=== PATIENT | female | born 1940 | race Caucasian/White ===

== ENCOUNTER 2020-12-12 14:00 | Emergency (ER) | payer MEDICARE, SELFPAY ==
[2020-12-12] VITALS (10 sets, daily range): BP systolic 171–216; BP diastolic 74–88; PULSE 64–73; RESP 16–27; TEMP 36.6; O2SAT 91–95
--- NOTE | 2020-12-12 14:10 | DI.RAD.S_ITS ---
PROCEDURE: XR CHEST 1V INDICATIONS: chest pain TECHNIQUE: One view of the chest was acquired. COMPARISON: None. FINDINGS: Surgical changes and devices: None. Lungs and pleura: Lungs are clear. No pleural effusions or pneumothorax. Mediastinum: Mediastinal contours appear normal. Heart size is normal. Bones and chest wall: No suspicious bony lesions. Overlying soft tissues appear unremarkable. IMPRESSION: No acute cardiopulmonary disease. Dictated by: Dionte Berrios M.D. on 12/12/2020 at 14:45 Approved by: Dionte Berrios M.D. on 12/12/2020 at 14:46
--- NOTE | 2020-12-12 14:44 | PC.NURSE ---
Pt has hx of of COPD and has chronic SOB that she cotributes to wearing a mask. Pt denies increased SOB and orthopnea. Pt is here with c/o hand and feet swelling. Pt saw PCP before she left [place] and changed medications from HCTZ to Lasix and she says it's not helping.
[2020-12-12 14:46] LABS: Add Manual Diff / Slide Review NO; Basophils Absolute Auto 100 /uL (0-100); Basophils Percent Auto 1.2 % (0-2); Eosinophils Absolute Auto 200 /uL (0-450); Eosinophils Percent Auto 2.8 % (2-4); Hematocrit 38.6 % (36-46); Hemoglobin 12.6 g/dL (12.0-16.0); Lymphocytes Absolute Auto 800 /uL (1100-4500); Lymphocytes Percent Auto 14.8 % (25-40); Mean Corpuscular HGB Conc 32.5 % (30-36); Mean Corpuscular Hemoglobin 28.1 PG (26-34); Mean Corpuscular Volume 86.5 fL (80-100); Monocytes Absolute Auto 500 /uL (0-900); Monocytes Percent Auto 8.6 % (3-14); Neutrophils Absolute Auto 4000 /uL (1500-7000); Neutrophils Percent Auto 72.6 % (50-75); Platelet Count 195 X10^3/uL (150-400); Red Blood Cell Count 4.47 X10^6/uL (4.0-5.2); White Blood Cell Count 5.5 X10^3/uL (4.5-11.0)
[2020-12-12 14:56] LABS: Alanine Aminotransferase 15 IU/L (<35); Albumin Globulin Ratio 1.7 (1.0-2.8); Alkaline Phosphatase 68 U/L (38-126); Aspartate Aminotransferase 22 IU/L (14-36); Bilirubin Total 0.5 mg/dL (0.2-1.3); Blood Urea Nitrogen 18 mg/dL (7-17); Calcium 9.5 mg/dL (8.4-10.2); Carbon Dioxide 30 mmol/L (22-32); Chloride 105 mmol/L (98-107); Creatine Kinase 63 U/L (30-135); Estimated Glomerular Filt Rate 53.3 mL/min (>60); Globulin 2.4 g/dL (1.7-4.1); Glucose 132 mg/dL (80-110); HEMOLYSIS < 15 (0-50); Lipase 58 U/L (23-300); Potassium 3.8 mmol/L (3.4-5.1); Sodium 143 mmol/L (137-145); Total Protein 6.4 g/dL (6.3-8.2)
--- NOTE | 2020-12-12 15:01 | ED_ITS ---
HPI - SOB/Dyspnea General Chief Complaint: Shortness of Breath/Dyspnea Stated Complaint: CP, SOB Time Seen by Provider: 12/12/20 14:46 Source: patient Mode of arrival: Ambulatory Limitations: no limitations History of Present Illness HPI Narrative: Patient is a 80-year-old history of CHF and COPD presenting with bilateral feet swelling. She actually lives in [place] and is visiting her grandson. She was seen by her primary care provider before she left because of but swelling and she was placed on 20 mg of Lasix. He has been taking it but still her feet feel like they are swollen. She has no lower extremity swelling she denies any worsening shortness of breath. She denies any orthopnea. She does wear oxygen at night however she is visiting they were supposed to deliver a tank of oxygen for her but they have only delivered small tanks which last for only 2 hours not couple night. she is having some shortness of breath during the day with exertion she thinks that is because she is not getting oxygen night. she denies any chest pain no fever chills or cough. She is truly here for her lower extremity foot swelling. She has difficult time putting shoes on. Onset (ago): week(s) Review of Systems Review of Systems ROS Unobtainable: All systems reviewed & are unremarkable except as noted in HPI and below Constitutional Constitutional: Denies chills, Denies fever(s), Denies lethargy and Denies weakness ENT Ears, Nose, Mouth, and Throat: Denies change in voice, Denies vertigo, Denies dizziness, Denies neck pain and Denies sore throat Cardiovascular Cardiovascular: Denies chest pain, Denies syncope, Denies irregular heart rhythm, Reports leg edema (Foot swelling), Denies lightheadedness, Denies palpitations, Denies dyspnea, Denies dyspnea on exertion and Denies orthopnea Respiratory Respiratory: Denies cough, Denies dyspnea, Denies dyspnea on exertion and Denies wheezing Gastrointestinal Gastrointestinal: Denies abdominal pain, Denies change in bowel habits, Denies diarrhea, Denies nausea and Denies vomiting Musculoskeletal Musculoskeletal: Denies back pain and Denies neck pain Integumentary/Breasts Skin/Breast: Denies pruritus, Denies erythema, Denies rash and Denies wounds Neurologic Neurologic: Denies vertigo, Denies dizziness, Denies syncope and Denies weakness Endocrine Endocrine: Denies palpitations Allergic/Immunologic Allergic/Immunologic: Denies wheezing Patient History Medical History CHF (congestive heart failure) COPD (chronic obstructive pulmonary disease) Coronary artery disease Social History Smoking Status: Former smoker Smoking Status: Former smoker Substance Use Type: does not use Exam Initial Vital Signs Initial Vital Signs: Vital Signs Temperature 97.9 F 12/12/20 14:10 Pulse Rate 70 12/12/20 14:10 Respiratory Rate 16 12/12/20 14:10 Blood Pressure 171/74 H 12/12/20 14:10 Pulse Oximetry 91 12/12/20 14:10 GENERAL: Well-appearing, well-nourished and in no acute distress. HEENT: Head atraumatic,EOMI, pupils reactive, face symmetric, moist mucous membranes CARDIOVASCULAR: Regular rate and rhythm without murmurs, rubs or gallops. RESPIRATORY: Breath sounds equal bilaterally, no wheezes rales or rhonchi. ABDOMEN: Soft, nontender. Normoactive bowel sounds all 4 quadrants. No gu arding or rebound. : No CVA tenderness EXTREMITIES: Normal range of motion, no clubbing. Mild foot swelling no significant foot or shoe indentation no tibial swelling Neurovascularly intact NEUROLOGICAL: Alert and oriented x4.Normal gait and speech. Cranial nerves II through XII grossly intact. SKIN: Warm, dry, no laceration, no petechiae, no rashes or lesions. Course Orders Ordered: ED Orders 12/12/20 14:10 XR chest 1V Stat EKG-12 Lead Stat 12/12/20 14:35 Complete Blood Count AUTO DIFF Stat Comprehensive Metabolic Panel Stat D Dimer Stat Lipase Stat NT-proBNP (BNP-Adult 18+) Stat Partial Thromboplastin Time Stat Prothrombin Time INR Stat Troponin & CK Cardiac Panel Stat 12/12/20 16:50 CT angio chest PE protocol Stat Vital Signs Vital signs: Vital Signs - 8 hr 12/12/20 14:10 12/12/20 14:25 12/12/20 14:30 Temperature 97.9 F Pulse Rate 70 66 Respiratory Rate 16 27 H Blood Pressure 171/74 H Pulse Oximetry 91 93 92 12/12/20 14:31 12/12/20 15:03 12/12/20 15:04 Temperature Pulse Rate 69 73 69 Respiratory Rate 25 H 24 23 Blood Pressure 187/77 H Pulse Oximetry 93 93 93 12/12/20 15:30 12/12/20 16:00 12/12/20 16:21 Temperature Pulse Rate 64 66 67 Respiratory Rate 20 22 20 Blood Pressure 192/77 H Pulse Oximetry 94 92 93 12/12/20 18:10 Temperature Pulse Rate 66 Respiratory Rate 16 Blood Pressure 216/88 H Pulse Oximetry 95 MDM - SOB/Dyspnea Lab Data Attestation: I reviewed the patient's lab results. Result diagrams: 12/12/20 14:35 12/12/20 14:35 Labs: Lab Results 12/12/20 12/12/20 12/12/20 Range/Units 14:35 14:35 14:35 WBC 5.5 (4.5-11.0) X10^3/uL RBC 4.47 (4.0-5.2) X10^6/uL Hgb 12.6 (12.0-16.0) g/dL Hct 38.6 (36-46) % MCV 86.5 (80-100) fL MCH 28.1 (26-34) PG MCHC 32.5 (30-36) % RDW 15.0 H (11.6-14.8) % Plt Count 195 (150-400) X10^3/uL Neut % (Auto) 72.6 (50-75) % Lymph % (Auto) 14.8 L (25-40) % Miller % (Auto) 8.6 (3-14) % Eos % (Auto) 2.8 (2-4) % Baso % (Auto) 1.2 (0-2) % Neut # (Auto) 4000 (1598-9696) /uL Lymph # (Auto) 800 L (5082-3198) /uL Miller # (Auto) 500 (0-900) /uL Eos # (Auto) 200 (0-450) /uL Baso # (Auto) 100 (0-100) /uL PT 11.2 (10.1-12.7) SECONDS INR 1.0 (0.9-1.3) APTT 27 (26.4-36.2) SECONDS D-Dimer (<230) ng/mL Sodium 143 (137-145) mmol/L Potassium 3.8 (3.4-5.1) mmol/L Chloride 105 (98-107) mmol/L Carbon Dioxide 30 (22-32) mmol/L BUN 18 H (7-17) mg/dL Creatinine 1.00 (0.52-1.04) mg/dL Estimated GFR 53.3 L (>60) mL/min BUN/Creatinine Ratio 18.0 (6-22) Glucose 132 H (80-110) mg/dL Calcium 9.5 (8.4-10.2) mg/dL Total Bilirubin 0.5 (0.2-1.3) mg/dL AST 22 (14-36) IU/L ALT 15 (<35) IU/L Alkaline Phosphatase 68 (38-126) U/L Total Creatine Kinase 63 (30-135) U/L CK-MB (CK-2) TNP CK-MB (CK-2) Rel Index TNP Troponin I < 0.012 (0.01-0.034) ng/mL NT-Pro-B Natriuret Pep (<450) pg/mL Total Protein 6.4 (6.3-8.2) g/dL Albumin 4.0 (3.5-5.0) g/dL Globulin 2.4 (1.7-4.1) g/dL Albumin/Globulin Ratio 1.7 (1.0-2.8) Lipase 58 (23-300) U/L 12/12/20 12/12/20 Range/Units 14:35 14:35 WBC (4.5-11.0) X10^3/uL RBC (4.0-5.2) X10^6/uL Hgb (12.0-16.0) g/dL Hct (36-46) % MCV (80-100) fL MCH (26-34) PG MCHC (30-36) % RDW (11.6-14.8) % Plt Count (150-400) X10^3/uL Neut % (Auto) (50-75) % Lymph % (Auto) (25-40) % Miller % (Auto) (3-14) % Eos % (Auto) (2-4) % Baso % (Auto) (0-2) % Neut # (Auto) (3698-6120) /uL Lymph # (Auto) (0599-5437) /uL Miller # (Auto) (0-900) /uL Eos # (Auto) (0-450) /uL Baso # (Auto) (0-100) /uL PT (10.1-12.7) SECONDS INR (0.9-1.3) APTT (26.4-36.2) SECONDS D-Dimer 346 H (<230) ng/mL Sodium (137-145) mmol/L Potassium (3.4-5.1) mmol/L Chloride (98-107) mmol/L Carbon Dioxide (22-32) mmol/L BUN (7-17) mg/dL Creatinine (0.52-1.04) mg/dL Estimated GFR (>60) mL/min BUN/Creatinine Ratio (6-22) Glucose (80-110) mg/dL Calcium (8.4-10.2) mg/dL Total Bilirubin (0.2-1.3) mg/dL AST (14-36) IU/L ALT (<35) IU/L Alkaline Phosphatase (38-126) U/L Total Creatine Kinase (30-135) U/L CK-MB (CK-2) CK-MB (CK-2) Rel Index Troponin I (0.01-0.034) ng/mL NT-Pro-B Natriuret Pep 417 (<450) pg/mL Total Protein (6.3-8.2) g/dL Albumin (3.5-5.0) g/dL Globulin (1.7-4.1) g/dL Albumin/Globulin Ratio (1.0-2.8) Lipase (23-300) U/L Imaging Data Chest x-ray: Radiologist's Impression: PROCEDURE: XR CHEST 1V INDICATIONS: chest pain TECHNIQUE: One view of the chest was acquired. COMPARISON: None. FINDINGS: Surgical changes and devices: None. Lungs and pleura: Lungs are clear. No pleural effusions or pneumothorax. Mediastinum: Mediastinal contours appear normal. Heart size is normal. Bones and chest wall: No suspicious bony lesions. Overlying soft tissues appe ar unremarkable. IMPRESSION: No acute cardiopulmonary disease. Dictated by: Dionte Berrios M.D. on 12/12/2020 at 14:45 CT scan - chest: Radiologist's Impression: PROCEDURE: CT ANGIO CHEST PE PROTOCOL INDICATIONS: hypoxia TECHNIQUE: After the administration of intravenous contrast, 2 mm thick sections acquired from the pulmonary apices to the posterior costophrenic angles. 3-dimensional maximum intensity projection (MIP) coronal and sagittal reformats were then acquired through the thorax. For radiation dose reduction, the following was used: automated exposure control, adjustment of mA and/or kV according to patient size. COMPARISON: [facility], CR, XR CHEST 1V, 12/12/2020, 14:18. FINDINGS: Image quality: Excellent. Lungs and pleura: No acute air space opacities. No pleural effusions or pneumothorax. Central and peripheral airways are patent and normal in caliber. Mediastinum: Heart size is normal. No pericardial effusion. No mediastinal adenopathy by size criteria. Thoracic aorta and central pulmonary arteries are normal in size. There is a sliding hiatal hernia. Bones and chest wall: No suspicious bony lesions. No vertebral body compression fractures. No axillary or supraclavicular adenopathy by size criteria. Thyroid gland is normal . Abdomen: Limited visualization of the upper abdomen shows no acute abnormality. IMPRESSION: 1. No pulmonary embolism. 2. No acute abnormality of the chest. 3. Sliding hiatal hernia. Dictated by: Hieu Cosme M.D. on 12/12/2020 at 17:42 Approved by: Hieu Cosme M.D. on 12/12/2020 at 17:47 ECG Data Attestation: I personally reviewed and interpreted this ECG as follows: Prior ECG tracings: not available for review Interpretation: Sinus rhythm rate 66 p.r. interval 156 QRS [address] changes Q-wave noted in lead 3 only no priors to compare. [facility] Narrative Medical decision making narrative: Patient initially quite resistant to in IV. She has a history of COPD and CHF. She is not getting the oxygen that she needs at night due to travel and communication issues with the oxygen company. [facility] that seems to be working out. Unfortunately she just had a long airplane flight and is having some shortness of breath with exertion during the daytime. Her biggest complaint however is her foot swelling. She is able to wear her shoes without significant indent that I appreciated. She certainly has no tibial edema. Lungs are clear with negative BNP. She is taking Lasix she states that she takes 20 mg once a day and is urinating. At this time I states that she could increase her Lasix to twice a day for no more than 2 days in a row however I will also recommend compression socks and elevation. CT angio was done due to her recent airplane flight and some shortness of. Which was negative for PE. Discharge Plan Departure Patient Disposition: Home Clinical Impression: Bilateral edema of lower extremity Instructions: DI for Peripheral Edema -- Bilateral Activity Restrictions/Additional Instructions: *You have been diagnosed with lower extremity edema *What to do: At this time he do not have a blood clot in her lungs. You have a small amount of fluid retention. Recommend leg elevation and compression stockings *Continue to take medications as directed You may increase your Lasix to twice a day for no more than 2 days in a row, do not take Lasix and hydrochlorothiazide together *Follow up with your primary care provider in 2-3 days *Return to ER if you should have increasing shortness of breath, increasing leg swelling, fever or any new, worsening or concerning symptoms Referrals: Miscellaneous,[facility] [Primary Care Provider] -
[2020-12-12 15:05] LABS: Prothrombin Time 11.2 SECONDS (10.1-12.7)
[2020-12-12 15:07] LABS: PTT Partial Thromboplastin Tim 27 SECONDS (26.4-36.2); Troponin I < 0.012 ng/mL (0.01-0.034)
[2020-12-12 15:19] LABS: D Dimer 346 ng/mL (<230)
[2020-12-12 15:42] LABS: NT-proBNP (BNP-Adult 18+) 417 pg/mL (<450)
--- NOTE | 2020-12-12 16:50 | DI.CT.S_ITS ---
PROCEDURE: CT ANGIO CHEST PE PROTOCOL INDICATIONS: hypoxia TECHNIQUE: After the administration of intravenous contrast, 2 mm thick sections acquired from the pulmonary apices to the posterior costophrenic angles. 3-dimensional maximum intensity projection (MIP) coronal and sagittal reformats were then acquired through the thorax. For radiation dose reduction, the following was used: automated exposure control, adjustment of mA and/or kV according to patient size. COMPARISON: [facility], CR, XR CHEST 1V, 12/12/2020, 14:18. FINDINGS: Image quality: Excellent. Lungs and pleura: No acute air space opacities. No pleural effusions or pneumothorax. Central and peripheral airways are patent and normal in caliber. Mediastinum: Heart size is normal. No pericardial effusion. No mediastinal adenopathy by size criteria. Thoracic aorta and central pulmonary arteries are normal in size. There is a sliding hiatal hernia. Bones and chest wall: No suspicious bony lesions. No vertebral body compression fractures. No axillary or supraclavicular adenopathy by size criteria. Thyroid gland is normal . Abdomen: Limited visualization of the upper abdomen shows no acute abnormality. IMPRESSION: 1. No pulmonary embolism. 2. No acute abnormality of the chest. 3. Sliding hiatal hernia. Dictated by: Hieu Cosme M.D. on 12/12/2020 at 17:42 Approved by: Hieu Cosme M.D. on 12/12/2020 at 17:47
== END 2020-12-12 18:11 | disposition home or self-care (01) ==
PROVIDERS: Emergency Provider Emergency Medicine
DX: R60.0 Localized edema (principal); R06.02 Shortness of breath; R07.9 Chest pain, unspecified
CPT/HCPCS: 36415; 71045; 71275; 80053; 82550; 83690; 83880; 84484; 85025; 85379; 85610; 85730; 93005; 93010; 99284; Q9967